=== PATIENT | female | born 1970 | race African-American/Black ===

== ENCOUNTER 2024-05-22 20:37 | Emergency (ER) | payer MEDICAID ==
[~2024-05-22] VITALS: Ht 157.5 cm; Wt 72.0 kg
[2024-05-22 20:45] VITALS: TEMP 98.1; O2SAT 99
[2024-05-22] MEDS ORDERED: TRAM50TA3 MT (23:39)
[2024-05-22] MEDS ORDERED: IBUP-2030 MT (23:39)
[2024-05-22 23:45] VITALS: O2SAT 100
[2024-05-22 23:46] VITALS: BP 117/74; PULSE 79; RESP 16
[2024-05-22] MEDS: HYDROCODONE/ACETAMINOPHEN 10/325MG TABLET PO ONE (23:46)
[2024-05-22] MEDS: KETOROLAC 30MG/ML VIAL IM ONE (23:46)
== END 2024-05-23 01:18 | disposition home or self-care (01) ==
LOC: ER 20:37
DX: M54.50 Low back pain, unspecified (principal); I10 Essential (primary) hypertension; F19.90 Other psychoactive substance use, unspecified, uncomplicated
CPT/HCPCS: 72100; 96372; 99283; J1885; Z7610

== ENCOUNTER 2024-07-29 13:07 | Emergency (ER) | payer MEDICAID ==
[~2024-07-29] VITALS: Ht 162.6 cm; Wt 85.0 kg
[~2024-07-29 13:07] MED LIST: IBUP-2030 MT; TRAM50TA3 MT
[2024-07-29 13:13] VITALS: O2SAT 98
[2024-07-29] MEDS: SODIUM CHLORIDE 0.9% 1,000 ML IV ONE (13:42)
[2024-07-29 14:24] LABS: BASOPHILS % 0.3 % (0.0-2.0); HEMATOCRIT. 35.1 % (36.0-48.0); HEMOGLOBIN. 11.4 g/dL (12.0-16.0); LYMPHOCYTES % 17.7 % (20.0-50.0); MEAN CORPUSCULAR HEMOGLOBIN 27.8 pg (28.0-32.0); MEAN CORPUSCULAR HGB CONC 32.5 g/dL (31.0-37.0); MEAN CORPUSCULAR VOLUME 85.6 fL (81.0-99.0); MEAN PLATELET VOLUME 9.4 fl (7.4-10.4); MONOCYTES % 6.4 % (2.0-8.0); NEUTROPHILS % 75.6 % (40.0-76.0); PLATELET 162 x1000/uL (130-400); RED CELL DISTRIBUTION WIDTH 15.7 % (11.6-14.6); WHITE BLOOD COUNT 4.8 x1000/uL (4.5-11.0)
[2024-07-29 14:34] LABS: DIFFERENTIAL COMMENT 1
[2024-07-29 14:41] LABS: CHLORIDE 109 mEq/L (98-107); POTASSIUM 3.7 mEq/L (3.5-5.1); SODIUM 142 mEq/L (136-145)
[2024-07-29 14:42] LABS: CALCIUM 9.3 mg/dL (8.7-10.4); CARBON DIOXIDE 24 mEq/L (21-32)
[2024-07-29 14:47] LABS: CREATININE 1.1 mg/dL (0.6-1.0); GLUCOSE 115 mg/dL (70-105)
[2024-07-29 14:48] LABS: UREA NITROGEN BLOOD 19 mg/dL (9-23)
[2024-07-29 15:04] LABS: ETHANOL BLOOD < 10 mg/dL (<10)
[2024-07-29 18:19] VITALS: BP 138/79; PULSE 84; RESP 19; TEMP 36.89184; O2SAT 99
[2024-08-01] MEDS ORDERED: KEPP500 MT (16:20)
== END 2024-07-29 18:00 | disposition home or self-care (01) ==
LOC: ER 13:07
DX: G40.909 Epilepsy, unspecified, not intractable, without status epilepticus (principal); I10 Essential (primary) hypertension
CPT/HCPCS: 80048; 80320; 82962; 85025; 36415; 70450; 96360; 99284; J7030; Z7610; A4606; G0480